=== PATIENT | male | born 1935 | race Caucasian/White ===

== ENCOUNTER → 2016-08-31 | Outpatient (CLI) | payer OTHER | END | disposition home or self-care (01) | LOC: PCVCCLINIC 15:29 | PROVIDERS: ATTEND Internal Medicine Cardiovascular Disease | DX: I25.10 Atherosclerotic heart disease of native coronary artery without angina pectoris (principal); I10 Essential (primary) hypertension; I71.4 Abdominal aortic aneurysm, without rupture; I65.29 Occlusion and stenosis of unspecified carotid artery; E78.00 Pure hypercholesterolemia, unspecified; Z86.73 Personal history of transient ischemic attack (TIA), and cerebral infarction without residual deficits; Z79.899 Other long term (current) drug therapy; Z87.891 Personal history of nicotine dependence; Z91.040 Latex allergy status | CPT/HCPCS: 80061; 93005; G0463 ==

== ENCOUNTER → 2016-09-21 | Outpatient (CLI) | payer OTHER ==
--- NOTE | 2016-09-21 17:29 | PCVCIMAG ---
APPROVED REPORT Exam: Stress Echocardiogram Indication: CAD , Chest pain , Hypertension,CHOL Patient Location: Echo lab Stress Nurse: Cindi Krause RN Status: routine HR: 65 bpm Rhythm: NSR Medical History Medical History: CAD non obstructive, HTN, Hyperlipidemia Pretest Chest Pain Characteristics: No chest pain Exercise History: Physically active Procedure The patient underwent an Exercise Stress Test using the Rashid Protocol. Blood pressure, heart rate, and EKG were monitored. An Echocardiogram was performed by environmental engineering technician in four stages in quad fashion. At peak stress, four selected images were obtained and placed side by side with resting images for comparison. Stress Test Details HR Resting HR: 65 bpmMax Heart Rate (APMHR): 139 bpm Max HR Achieved: 139 bpmTarget HR (85% APMHR): 118 bpm % of APMHR: 100 Recovery HR: 86 bpm HR response to stress: Normal HR response to stress BP Resting BP: 134/82 mmHg Max BP: 166/86 mmHg Recovery BP: 128/70 mmHg ECG Resting ECG: Sinus Rhythm Stress ECG: Sinus Rhythm, NSSTT changes ST Change: Non-ischemic Arrhythmia: PAC Recovery ECG: Sinus Rhythm Recovery Arrhythmia: None Clinical Reason for Termination: Maximal effort Stress Symptoms: nONE Exercise duration: 9 min sec Highest Stage Achieved: Stage 3: 3.4 mph at 14% grade. Exercise capacity: 10.1 METs Overall Exercise Capacity for Age: Good Angina Score: None Pre-Stress Echo The resting Echocardiogram showed normal left ventricular contractility with an estimated Ejection Fraction of about 55-60%. Post-Stress Echo The stress Echocardiogram showed normal left ventricular contractility with an estimated Ejection Fraction of about 65-70%. Clinical No clinical or ECG evidence for ischemia. Conclusion Clinical Response: Non-ischemic Exercise Capacity: Superior Stress ECG Response: Non-ischemic Stress Echo Images: Non-ischemic Normal stress echocardiogram with maximal exercise stress. No clinical, EKG or echocardiographic evidence for ischemia. <Conclusion> Normal stress echocardiogram with maximal exercise stress. No clinical, EKG or echocardiographic evidence for ischemia.
== END | disposition home or self-care (01) ==
LOC: PCVCIMAG 12:54
PROVIDERS: ATTEND Internal Medicine Cardiovascular Disease
DX: I25.10 Atherosclerotic heart disease of native coronary artery without angina pectoris (principal); I10 Essential (primary) hypertension; E78.5 Hyperlipidemia, unspecified; E78.00 Pure hypercholesterolemia, unspecified
CPT/HCPCS: 93325; 93351

== ENCOUNTER → 2017-03-27 | Outpatient (CLI) | payer OTHER | END | disposition home or self-care (01) | LOC: PCVCCLINIC 14:43 | DX: I25.10 Atherosclerotic heart disease of native coronary artery without angina pectoris (principal); E78.00 Pure hypercholesterolemia, unspecified; I10 Essential (primary) hypertension; I71.4 Abdominal aortic aneurysm, without rupture; I65.29 Occlusion and stenosis of unspecified carotid artery; I70.1 Atherosclerosis of renal artery; Z87.891 Personal history of nicotine dependence | CPT/HCPCS: 80061; 93005; G0463 ==

== ENCOUNTER → 2017-10-11 | Outpatient (CLI) | payer OTHER ==
--- NOTE | 2017-10-11 11:37 | PCVCIMAG ---
EXAM: BILATERAL RENAL ULTRASOUND AND BILATERAL RENAL DUPLEX INDICATION: Hypertension FINDINGS: Right kidney: Length measures 10.4 cm. No hydronephrosis or extensive renal scarring. Right renal duplex: Adequate technical quality. No sonographic evidence of renal artery stenosis. The aortic to renal artery ratio is 2.5. The renal vein is patent. Left kidney: Length measures 10.4 cm. No hydronephrosis or extensive renal scarring. Left renal duplex: Adequate technical quality. No sonographic evidence of renal artery stenosis. The aortic to renal artery ratio is 1.9. The renal vein is patent. Bladder: No obvious abnormalities. IMPRESSION: No significant renal artery stenosis. No hydronephrosis bilaterally. Incidental note is made of stent graft repair of an infrarenal abdominal aortic aneurysm with residual aneurysm sac measuring 4.2 x 4.5 cm compared to 4.4 x 4.5 cm on January 2016 study. LOC:OFFICE
--- NOTE | 2017-10-11 15:07 | PCVCIMAG ---
APPROVED REPORT Study performed: 10/11/2017 10:21:26 Exam: Stress Echocardiogram Indication: Hyperlipidemia, Hypertension Stress Nurse: Cindi Krause RN Status: routine Ht: 5 ft 9 in HR: 65 bpm BP: 130/70 mmHg Rhythm: NSR Procedure The patient underwent an Exercise Stress Test using the Rashid Protocol. Blood pressure, heart rate, and EKG were monitored. An Echocardiogram was performed by robotics technician in four stages in quad fashion. At peak stress, four selected images were obtained and placed side by side with resting images for comparison. Stress Test Details Stress Test: Exercise stress testing was performed using a Rashid protocol. HR Resting HR: 65 bpmMax Heart Rate (APMHR): 138 bpm Max HR Achieved: 146 bpmTarget HR (85% APMHR): 117 bpm % of APMHR: 105 HR response to stress: Accelerated HR response to stress BP Resting BP: 130/70 mmHg Max BP: 150/74 mmHg ECG Resting ECG: Sinus Rhythm Stress ECG: Sinus tachycardia Recovery ECG: Sinus Rhythm Clinical Reason for Termination: Maximal effort Exercise duration: 9 min sec Highest Stage Achieved: Stage 3: 3.4 mph at 14% grade. Exercise capacity: 10.10 METs Overall Exercise Capacity for Age: Normal Pre-Stress Echo The resting Echocardiogram showed normal left ventricular contractility with an estimated Ejection Fraction of about 55-60%. Post-Stress Echo The stress Echocardiogram showed normal left ventricular contractility with an estimated Ejection Fraction of about 60-65%. Conclusion Clinical Response: Non-ischemic Exercise Capacity: Average Stress ECG Response: Non-ischemic Stress Echo Images: Non-ischemic Other Information Study Quality: Adequate
== END | disposition home or self-care (01) ==
LOC: PCVCIMAG 10:33
PROVIDERS: ATTEND Internal Medicine Cardiovascular Disease
DX: I70.1 Atherosclerosis of renal artery (principal); I10 Essential (primary) hypertension; I25.10 Atherosclerotic heart disease of native coronary artery without angina pectoris
CPT/HCPCS: 76770; 93325; 93351; 93975

== ENCOUNTER → 2018-06-10 | Outpatient (CLI) | payer OTHER | END | disposition home or self-care (01) | LOC: PCVCCLINIC 13:08 | PROVIDERS: ATTEND Internal Medicine Cardiovascular Disease | DX: I25.10 Atherosclerotic heart disease of native coronary artery without angina pectoris (principal); I71.4 Abdominal aortic aneurysm, without rupture; E78.00 Pure hypercholesterolemia, unspecified; I10 Essential (primary) hypertension; Z87.891 Personal history of nicotine dependence | CPT/HCPCS: 36415; 80061; 93005; G0463 ==

== ENCOUNTER → 2019-01-01 | Outpatient (CLI) | payer OTHER | END | disposition home or self-care (01) | LOC: PCVCCLINIC 14:22 | PROVIDERS: ATTEND Internal Medicine Cardiovascular Disease | DX: I25.10 Atherosclerotic heart disease of native coronary artery without angina pectoris (principal); I10 Essential (primary) hypertension; I71.4 Abdominal aortic aneurysm, without rupture; E78.00 Pure hypercholesterolemia, unspecified; Z87.891 Personal history of nicotine dependence | CPT/HCPCS: 36415; 80061; 93005; G0463 ==